=== PATIENT | female | born 1985 | race Caucasian/White ===

== ENCOUNTER 2019-06-23 08:57 | Outpatient (RCR) | payer OTHER, SELFPAY ==
[2019-05-12 10:53] VITALS: BP 116/74; PULSE 90
[2019-05-19 17:06] VITALS: BP 117/70; PULSE 84
[2019-05-26 17:03] VITALS: BP 113/69; PULSE 84
[2019-06-02 17:24] VITALS: BP 117/67; PULSE 81
[2019-06-09 17:10] VITALS: BP 118/70; PULSE 87
[2019-06-16 08:46] VITALS: BP 120/76; PULSE 92
[2019-06-23 09:39] VITALS: BP 116/77; PULSE 93
== END 2019-07-04 08:16 | disposition home or self-care (01) ==
LOC: ANHOBOP 08:57
PROVIDERS: Visit Provider Obstetrics & Gynecology
DX: O69.89X0 Labor and delivery complicated by other cord complications, not applicable or unspecified (principal); Z3A.32 32 weeks gestation of pregnancy; Z3A.33 33 weeks gestation of pregnancy; Z3A.34 34 weeks gestation of pregnancy; Z3A.35 35 weeks gestation of pregnancy; Z3A.36 36 weeks gestation of pregnancy; Z3A.37 37 weeks gestation of pregnancy; Z3A.38 38 weeks gestation of pregnancy
CPT/HCPCS: 59025

== ENCOUNTER 2019-06-30 06:11 | Inpatient (IN) | payer OTHER, SELFPAY ==
[2019-06-30] VITALS (15 sets, daily range): BP systolic 111–131; BP diastolic 67–87; PULSE 68–90; RESP 12–16; TEMP 36.6–37.6; O2SAT 99; BMI 24.0
[2019-06-30] MEDS: LACTATED RINGERS 1,000 ML 125 ML IV CONT (06:35)
[2019-06-30 06:41] LABS: Basophils Percent Auto 0.5 % (0.2-1.2); Eosinophils Absolute Auto 0.1 K/mm3 (0-0.3); Eosinophils Percent Auto 1.1 % (0-4.4); Hematocrit 35.7 % (37.0-47.0); Hemoglobin 12.1 g/dL (12.0-15.0); Immature Granulocyte Absolute 0.04 K/mm3 (0.00-0.031); Immature Granulocyte Percent A 0.5 % (0-0.5); Lymphocytes Percent Auto 27.1 % (18.3-44.2); Mean Corpuscular HGB Conc 33.9 g/dl (32-36); Mean Corpuscular Hemoglobin 31.6 pg (26-34); Mean Corpuscular Volume 93.2 fl (80-100); Mean Platelet Volume 10.9 fl (7.4-10.4); Monocytes Absolute Auto 0.6 K/mm3 (0.1-0.6); Monocytes Percent Auto 6.9 % (2.6-8.5); Neutrophils Absolute Auto 5.7 K/mm3 (1.3-6.7); Neutrophils Percent Auto 63.9 % (45.5-73.1); Platelet Count Result 213 k/mm3 (150-375); Red Blood Count 3.83 M/mm3 (4.2-5.4); Red Cell Distribution Width 13.2 % (11.5-14.5); White Blood Count 8.9 K/mm3 (4.5-10.0)
[2019-06-30] MEDS: OXYTOCIN 30 UNITS/NS 500 ML 30 UNITS/500 ML BAG 999 UNITS IV CONT (07:02)
--- NOTE | 2019-06-30 07:21 | PM.IMHP ---
H&P: HPI History of Present Illness Chief complaint: SROM Narrative: Hugh Staton is a 33 year old female 4 para 2011 with a last menstrual period of 09/29/2018 EDC of 07/06/2019 present at 39 weeks gestation in active labor 10 history of a fast delivery and has a 2 vessel cord with this she was admitted and delivered prior to the time I was none. A delivered the placenta under blood loss was minimal. Please see the nurse delivery note for full details. Review of Systems Review of Systems: All systems reviewed & are unremarkable except as noted in HPI and below PMFSH Family History Family History Mother Hypertension Social History Social History Substance use: never Gender identity (if verbalized by the patient): Female Spiritual care concerns: No Meds Home Medications and Allergies Home Medications Medication Instructions Recorded Confirmed Type PNV cmb#95-ferrous fumarate-FA 1 tablet PO DAILY 06/09/19 06/09/19 History [] Allergies Allergy/AdvReac Type Severity Reaction Status Date / Time morphine AdvReac Mild ITCHING Verified 05/12/19 12:08 Sulfa (Sulfonamide AdvReac Mild Nausea and Verified 05/31/18 11:05 Antibiotics) Vomiting Vital Signs Vital Signs - 24 hr 06/30/19 06:44 06/30/19 06:46 06/30/19 07:00 Pulse Rate 88 82 81 Blood Pressure 118/68 113/73 117/67 06/30/19 07:16 Pulse Rate 79 Blood Pressure 111/87 Exam Const: General: no acute distress Eyes: General: appearance normal, both eyes and all related structures Neck: Neck: supple and no JVD Thyroid: thyroid normal Resp: Effort & Inspection: normal respiratory effort Auscultation: clear to auscultation bilaterally Cardio: Rate: regular rate Rhythm: regular rhythm GI: Inspection: non-distended GI Palp: Yes Soft to palpation, No Tenderness to palpation present (GI) and No Guarding due to palpation present (GI) Auscultation: normal bowel sounds : General: Yes bladder normal to palpation External Female Exam: normal external appearance Speculum Exam - Vagina: normal vaginal discharge and No vaginal bleeding Speculum Exam - Cervix: nontender Bimanual exam- vagina & uterus: bladder normal to palpation and No Cervical tenderness present OB/external & speculum: No vaginal bleeding Skin: General skin exam: no rashes or lesions noted Extrem: General: normal to inspection and no edema Psych: Mental Status: mental status grossly normal Affect: normal affect H&P: Results Labs Labs: Short CBC 06/30/19 Range/Units 06:34 WBC 8.9 (4.5-10.0) K/mm3 Hgb 12.1 (12.0-15.0) g/dL Hct 35.7 L (37.0-47.0) % Plt Count 213 (150-375) k/mm3 Assessment and Plan Additional Plan Impression. Term now with spontaneous vaginal delivery. Plan a delivered was and a bleeding was minimal routine care
--- NOTE | 2019-06-30 07:23 | PM.OBPRVD ---
OB - Delivery Note Procedure Delivery date: 06/30/19 events: No Care (2 vessel cord) Intrapartal events: None Induction method: none Delivery monitor: external FHT Route of delivery: Laceration description: None Specimen: No Estimated blood loss (mL): 25 Anesthesia type: None Disposition: floor Complications: Nurse delivery. Nuchal cord x2. I delivered the placenta Baby Date of : 06/30/19 Weeks of gestation at delivery: 39 gender: Male presentation: vertex position: Right Occiput Anterior Placenta delivery description: Spontaneous
--- NOTE | 2019-06-30 07:33 | LDADM ---
This patient, Hugh Staton, was admitted to Labor/Delivery/Recovery [facility] on 06/30/19 at 06:11 in active labor. Plans for labor, pain management and were discussed with patient. Patient/family oriented to hospital policies and general routines including ID bracelet, bed and alarms, visiting hours, pain management, procedures, bathroom and other care routines, personal items, smoking policy, room service/diet and guest tray routines, infant security routines, and visiting hours. Patient/Family are encouraged to report perceived risks to care and to ask questions if they do not understand what they are told or what they should do. See OBIX for further documentation.
[2019-06-30] MEDS: OXYTOCIN 30 UNITS/NS 500 ML 30 UNITS/500 ML BAG 125 UNITS IV CONT (07:43)
[2019-06-30 07:44] LABS: Rapid Plasma Reagin Non-Reactive (NonReactive)
[2019-06-30] MEDS: SODIUM CHLORIDE 0.9% IV 1,000 ML 150 ML I-UTERINE (08:34)
[2019-06-30] MEDS: TERBUTALINE SULFATE 1 MG/ML VIAL 0.25 MG SUB-Q (08:50)
--- NOTE | 2019-06-30 11:00 | OBPPTRN ---
Addendum entered by Yara Ortiz RN 06/30/19 11:02: Pt was transferred to PP at 1026 Original Note: Patient transferred to post room # [id number] wheelchair. Support person present. Oriented to unit, room, information board, rooming in, admission packet and security measures. Patient verbalizes understanding.
--- NOTE | 2019-06-30 14:20 | PC.NURSE ---
Mother called out for assist with feeding, is sleepy, several attempts without a successful latch. Advised to skin and skin and attempt again in 30 min.
--- NOTE | 2019-06-30 14:55 | PC.NURSE ---
Mother called out is showing feeding cues. Reviewed infant feeding cues, frequencies, duration of feedings, feeding elimination flow sheet, and signs of adequate intake. Demonstrated stimulation techniques to wake infant for feeding. Assisted with to breast. Reviewed positioning/alignment in cross cradle, holding breast in U hold and guided asymmetrical latch on. Discussed rational for each. was able to latch correctly. Infant nursed eagerly, with steady draws and frequent swallowing noted. Reviewed signs of a correct latch, effective nursing and suck swallow ratio. Infant was able to maintain latch without discomfort to mother. Nipple care reviewed. Suggested to stimulate during feeding to keep awake and nursing effectively for increased intake and maintaining deep latch. Demonstrated how to adjust latch more deeply while feeding. Instructed mother to call out for RN assistance if she is unable to latch infant for feeding or she has discomfort with nursing. Instructed feeding should be initiated three hours from start of last feeding or if feeding cues are noted before. Mother voiced understanding of information shared.
[2019-07-01 05:07] LABS: Hematocrit 31.7 % (37.0-47.0); Hemoglobin 10.2 g/dL (12.0-15.0)
[2019-07-01 08:05] VITALS: BP 128/83; PULSE 70; RESP 16; TEMP 36.4; O2SAT 98
[2019-07-01] MEDS: MULTIVIT/MIN/PREN/FOL AC/IRON TABLET 1 TAB PO (09:29)
[2019-07-01] MEDS: TETANUS,DIPHTHERIA,AC PERTUSSIS ADULT 0.5 ML (ADACEL) IM (09:32)
--- NOTE | 2019-07-01 12:17 | PM.OBPNVD ---
OB - PN: Subj Subjective Date/time seen: 07/01/19 12:17 Narrative: Pain OK. Would like circumcison for son. Would like to go home. OB - PN: Obj Data Labs CBC & Chem 7: 07/01/19 04:51 Labs: Laboratory Results - last 24 hr 07/01/19 04:51 Hgb 10.2 L Hct 31.7 L OB - PN A/P Plan Comments: A: PPD#1, doing well. P: Reviewed circ. Plan home today to f/u 6 weeks. Exam Psych: Other: AVSS ABD soft, nontender, fundus firm EXT nontender
--- NOTE | 2019-07-01 12:20 | PM.OBDSVD ---
DS: Diagnosis Discharge Diagnosis (1) (normal spontaneous vaginal delivery): Code(s): O80 - Encounter for full-term uncomplicated delivery Status: Acute OB - DS: Summary OB Procedures : None OB Procedures Intrapartum: Spontaneous Vag Delivery OB Procedures: : None Time Spent with Patient Time attestation: Total time spent providing and/or coordinating discharge services: DS: Data Data Completed and Pending Labs on day of discharge: Labs from last 24 hours 07/01/19 04:51 Hgb 10.2 L Hct 31.7 L Discharge Plan Discharge Attending physician on discharge: Christiano Hawthorne Discharging Clinician: Christiano Hawthorne Patient Disposition: Home, Self-Care Activity: pelvic rest Diet: regular Discharge Instructions: Call or return if temperature above 100.4? F, increased abdominal pain, increased vaginal bleeding or any new problems. Patient Instructions: Antibiotic Form Stand Alone Forms: General Discharge Information Follow-up/Referrals: Christiano Hawthorne MD [Physician] - (6 weeks) Discharge Medications: No Action PNV cmb#95-ferrous fumarate-FA [] 28 mg iron- 800 mcg Tablet 1 tablet PO DAILY RF: 0 Date of admission: 06/30/19 06:11 Primary Care Provider: UNKNOWN,DOCTOR Admitting Provider: Christiano Hawthorne Attending physician on admission: Christiano Hawthorne
[2019-07-04 11:56] VITALS: BP 121/80; PULSE 80; RESP 20; TEMP 36.4
== END 2019-07-01 13:50 | disposition home or self-care (01) | DRG 807 ==
LOC: ANHLDR 06:39 → ANHOB2 10:34
PROVIDERS: Admitting Provider Obstetrics & Gynecology; Visit Provider Obstetrics & Gynecology
DX: O62.3 Precipitate labor (principal); Z37.0 Single live birth; Z3A.39 39 weeks gestation of pregnancy; O69.89X0 Labor and delivery complicated by other cord complications, not applicable or unspecified; Z23 Encounter for immunization
CPT/HCPCS: 36415; 85014; 85018; 85025; 86592; 86850; 86900; 86901; 90471; 90686; 90715; A9270; G0008; J2590; J3105; J7030; J7120

== ENCOUNTER 2020-11-09 18:24 | Outpatient (CLI) | payer OTHER, SELFPAY ==
--- NOTE | ~2020-11-09 | XR_ITS ---
EXAMINATION: XR ribs LT 2V DATE: 11/09/2020 18:44 INDICATION: Left chest injury. TECHNIQUE: 2 views of the left ribs on 3 radiographs were obtained. COMPARISON: None. FINDINGS: There is no left-sided pneumonia, pleural effusion, pneumothorax. The heart size is normal. There is a fracture of left sixth rib. IMPRESSION: 1. Fracture of left sixth rib. Reviewed, dictated and finalized at location A.
== END 2020-11-09 18:25 | disposition home or self-care (01) ==
DX: S22.32XA Fracture of one rib, left side, initial encounter for closed fracture (principal); X58.XXXA Exposure to other specified factors, initial encounter
CPT/HCPCS: 71100